=== PATIENT | female | born 1965 | race Caucasian/White ===

== ENCOUNTER 2016-04-07 17:56 | Emergency (ER) | payer BC ==
[2016-04-07] MEDS ORDERED: NS 0.9% 1000 ML* 2,000 ML IV ONE (18:04)
[2016-04-07 18:22] LABS: Hematocrit 35 % (35-47); Hemoglobin 11.6 g/dl (12.0-16.0); Mean Corpuscular HGB Conc 33 g/dl (31-36); Mean Corpuscular Hemoglobin 29 pg (27-31); Mean Corpuscular Volume 87 fL (80-97); Mean Platelet Volume 10 um3 (7.4-10.4); Red Blood Count 4.06 10^6/ul (4.0-5.4); Red Cell Distribution Width 13 % (10.5-15)
[2016-04-07 18:24] LABS: Add Diff/Slide Review? Slide Review Added; Comments Flag Yes
[2016-04-07 18:38] LABS: Albumin 3.2 g/dL (3.2-5.2); BUN/Creatinine Ratio 14.5 (8-20); Calcium 8.4 mg/dL (8.6-10.3); EGFR African American 104.5 (>60); EGFR Non-African American 81.2 (>60); Globulin 2.1 g/dL (2-4); Magnesium 1.5 mg/dL (1.9-2.7); Potassium 3.3 mmol/L (3.5-5.0); Total Bilirubin 0.6 mg/dL (0.2-1.0); Total Protein 5.3 g/dL (6.4-8.9)
[2016-04-07 19:11] LABS: TSH (Thyroid Stimulating Horm) 1.02 mcIU/mL (0.34-5.60)
--- NOTE | 2016-04-07 19:33 | ED ---
Kirit Romero Adam, scribed for Woo Rodriguez MD on 04/07/16 at 1849 . ED Suture/Wound Check - HPI Summary HPI Summary: A 50 y/o female presents to the ED s/p bilateral breast reduction surgery this morning at [facility] in [place], [place] by Dr. Lindsey. She is c/o excess bleeding from the left breast. Bilateral drains present. Patient also had a syncopal episode when she arrived to [facility] ED that was witnessed with no LOC or significant head trauma.PMHx includes Oziel's Disease and depression. FHx is positive for HTN. Denies alcohol, tobacco, or substances. - History Of Current Complaint Chief Complaint: EDGeneral Stated Complaint: POST OP BLEEDING Time Seen by Provider: 04/07/16 18:03 Hx Obtained From: Patient Onset/Duration: Gradual Onset, Lasting Hours, Still Present Severity: Moderate Pain Intensity: 0 Pain Scale Used: 0-10 Numeric Procedure Type: Bilateral breast reduction Surgery Date: 04/07/16 - Surgery done in AM - Allergies/Home Medications Allergies/Adverse Reactions: Allergies Allergy/AdvReac Type Severity Reaction Status Date / Time Brompheniramine Allergy FACIAL Verified 04/07/16 18:31 [From [employer]et[employer]] SWELLING Phenylpropanolamine Allergy FACIAL Verified 04/07/16 18:31 [From [employer]etapp] SWELLING PMH/Surg Hx/FS Hx/Imm Hx Endocrine/Hematology History: Reports: Other Endocrine/Hematological Disorders - Oziel's Disease Psychiatric History: Reports: Hx Depression Infectious Disease History: No Infectious Disease History: Denies: Traveled Outside the [place] in Last 30 Days - Family History Known Family History: Positive: Hypertension - Father - Social History Occupation: Employed Full-time Lives: With Family Alcohol Use: None Substance Use Type: Reports: None Smoking Status (MU): Never Smoked Tobacco Review of Systems Constitutional: Negative Eyes: Negative ENT: Negative Cardiovascular: Negative Respiratory: Negative Gastrointestinal: Negative Genitourinary: Negative Musculoskeletal: Negative Positive: Bruising - Bilateral breasts, Other - Bleeding from breast reduction surgical wounds Positive: Syncope - At [facility] [place] [facility] ED bilingual medical receptionist desk Psychological: Normal All Other Systems Reviewed And Are Negative: Yes Physical Exam - Summary Physical Exam Summary: The patient is well-nourished in no acute distress and in no acute pain. The skin is warm and mildly diaphoretic and skin color reflects adequate perfusion. Cap refil 2 seconds. Right breast has dried blood and is draining well. Left breast more edematous and ecchymotic. Both drains intact. HEENT: The head is normocephalic and atraumatic. The pupils are equal and reactive. The conjunctivae are clear and without drainage. Nares are patent and without drainage. Mouth reveals dry mucous membranes and the throat is without erythema and exudate. The external ears are intact. The ear canals are patent and without drainage. The tympanic membranes are intact. Neck is supple with full range of motion and non-tender. There are no carotid bruits. There is no neck vein distension. Respiratory: Chest is non-tender. Lungs are clear to auscultation and breath sounds are symmetrical and equal. Cardiovascular: Heart is regular rate and rhythm. There is no murmur or rub auscultated. There is no peripheral edema and pulses are symmetrical and equal. Abdomen: The abdomen is soft and non-tender. There are normal bowel sounds heard in all four quadrants and there is no organomegaly palpated. Musculoskeletal: There is no back pain noted. Extremities are non-tender with full range of motion. Capillary refill is 2 seconds. There is no peripheral edema or calf tenderness elicited. Neurological: Patient is alert and oriented to person, place and time. The patient has symmetrical motor strength in all four extremities. Cranial nerves are grossly intact. Deep tendon reflexes are symmetrical and equal in all four extremities. Psychiatric: The patient has an appropriate affect and does not exhibit any anxiety or depression. Vital Signs On Initial Exam: Initial Vitals Temp Pulse Resp BP Pulse Ox 97.2 F 69 16 98/56 99 04/07/16 18:06 04/07/16 18:06 04/07/16 18:06 04/07/16 18:06 04/07/16 18:06 - [place] Coma Scale Coma Scale Total: 15 Diagnostics - Vital Signs Vital Signs Temp Pulse Resp BP Pulse Ox 04/07/16 18:06 97.2 F 69 16 98/56 99 - Laboratory Lab Results: Lab Results 04/07/16 04/07/16 04/07/16 Range/Units 18:10 18:10 18:10 WBC 22.0 H (3.5-10.8) 10^3/ul RBC 4.06 (4.0-5.4) 10^6/ul Hgb 11.6 L (12.0-16.0) g/dl Hct 35 (35-47) % MCV 87 (80-97) fL MCH 29 (27-31) pg MCHC 33 (31-36) g/dl RDW 13 (10.5-15) % Plt Count 325 (150-450) 10^3/ul MPV 10 (7.4-10.4) um3 Neut % (Auto) 88.2 H (38-83) % Lymph % (Auto) 4.1 L (25-47) % Quay % (Auto) 7.5 (1-9) % Eos % (Auto) 0 (0-6) % Baso % (Auto) 0.2 (0-2) % Absolute Neuts (auto) 19.4 H (1.5-7.7) 10^3/ul Absolute Lymphs (auto) 0.9 L (1.0-4.8) 10^3/ul Absolute Monos (auto) 1.7 H (0-0.8) 10^3/ul Absolute Eos (auto) 0 (0-0.6) 10^3/ul Absolute Basos (auto) 0 (0-0.2) 10^3/ul Absolute Nucleated RBC 0 10^3/ul Nucleated RBC % 0 INR (Anticoag Therapy) (0.89-1.11) APTT (26.0-36.3) seconds Sodium 134 (133-145) mmol/L Potassium 3.3 L (3.5-5.0) mmol/L Chloride 105 (101-111) mmol/L Carbon Dioxide 26 (22-32) mmol/L Anion Gap 3 (2-11) mmol/L BUN 11 (6-24) mg/dL Creatinine 0.76 (0.51-0.95) mg/dL Est GFR ( Amer) 104.5 (>60) Est GFR (Non-Af Amer) 81.2 (>60) BUN/Creatinine Ratio 14.5 (8-20) Glucose 193 H (70-100) mg/dL Lactic Acid 3.9 H* (0.5-2.0) mmol/L Calcium 8.4 L (8.6-10.3) mg/dL Magnesium 1.5 L (1.9-2.7) mg/dL Total Bilirubin 0.60 (0.2-1.0) mg/dL AST 14 (13-39) U/L ALT 13 (7-52) U/L Alkaline Phosphatase 48 (34-104) U/L Troponin I 0.00 (<0.04) ng/mL Total Protein 5.3 L (6.4-8.9) g/dL Albumin 3.2 (3.2-5.2) g/dL Globulin 2.1 (2-4) g/dL Albumin/Globulin Ratio 1.5 (1-3) TSH Pending 04/07/16 Range/Units 18:10 WBC (3.5-10.8) 10^3/ul RBC (4.0-5.4) 10^6/ul Hgb (12.0-16.0) g/dl Hct (35-47) % MCV (80-97) fL MCH (27-31) pg MCHC (31-36) g/dl RDW (10.5-15) % Plt Count (150-450) 10^3/ul MPV (7.4-10.4) um3 Neut % (Auto) (38-83) % Lymph % (Auto) (25-47) % Quay % (Auto) (1-9) % Eos % (Auto) (0-6) % Baso % (Auto) (0-2) % Absolute Neuts (auto) (1.5-7.7) 10^3/ul Absolute Lymphs (auto) (1.0-4.8) 10^3/ul Absolute Monos (auto) (0-0.8) 10^3/ul Absolute Eos (auto) (0-0.6) 10^3/ul Absolute Basos (auto) (0-0.2) 10^3/ul Absolute Nucleated RBC 10^3/ul Nucleated RBC % INR (Anticoag Therapy) 1.00 (0.89-1.11) APTT 23.2 L (26.0-36.3) seconds Sodium (133-145) mmol/L Potassium (3.5-5.0) mmol/L Chloride (101-111) mmol/L Carbon Dioxide (22-32) mmol/L Anion Gap (2-11) mmol/L BUN (6-24) mg/dL Creatinine (0.51-0.95) mg/dL Est GFR ( Amer) (>60) Est GFR (Non-Af Amer) (>60) BUN/Creatinine Ratio (8-20) Glucose (70-100) mg/dL Lactic Acid (0.5-2.0) mmol/L Calcium (8.6-10.3) mg/dL Magnesium (1.9-2.7) mg/dL Total Bilirubin (0.2-1.0) mg/dL AST (13-39) U/L ALT (7-52) U/L Alkaline Phosphatase (34-104) U/L Troponin I (<0.04) ng/mL Total Protein (6.4-8.9) g/dL Albumin (3.2-5.2) g/dL Globulin (2-4) g/dL Albumin/Globulin Ratio (1-3) TSH Result Diagrams: 04/07/16 18:10 04/07/16 18:10 Lab Statement: Any lab studies that have been ordered have been reviewed, and results considered in the medical decision making process. Course/Dx - Differential Diagnoses Differential Diagnoses: Dehiscence, Hematoma, Other - syncope, - Clinical Impression Provider Diagnoses: Syncope, Left breast hematoma, Status post bilateral breast reduction - Physician Notifications Discussed Care Of Patient With: Dr. Thomas (housecalls nurse physician for [employer] , 18:35) - States there could be hematoma present that may require draining. Suggests transfer. Dr. Flores ([facility], 19:15) - Accepts patient for transfer. Discharge - Discharge Plan Condition: Stable Disposition: TRANS HIGHER LVL OF CARE FAC Discharge Disposition Comment: Patient's surgery was performed in [place] The documentation as recorded by the Kirit hernandez Adam accurately reflects the service I personally performed and the decisions made by , Woo Rodriguez MD.
--- NOTE | 2016-04-07 20:11 | ED ---
Kirit Romero Adam, scribed for Woo Rodriguez MD on 04/07/16 at 1959 . Progress - EKG/XRAY/CT EKG: NSR - 18:02 Rate: 74, no ST T wave changes Comments: Normal axis Course/Dx - Diagnoses Provider Diagnoses: Syncope The documentation as recorded by the scribeKirit Adam accurately reflects the service I personally performed and the decisions made by me, Woo Rodriguez MD.
[2016-04-07 20:27] VITALS: BP 145/62
== END 2016-04-07 20:27 | disposition short-term general hospital (02) ==
LOC: ED 17:56
DX: R55 Syncope and collapse (principal); S20.02XA Contusion of left breast, initial encounter; Z98.890 Other specified postprocedural states; X58.XXXA Exposure to other specified factors, initial encounter; Y93.9 Activity, unspecified; Y92.9 Unspecified place or not applicable; Y99.9 Unspecified external cause status
CPT/HCPCS: 36415; 80053; 83605; 83735; 84443; 84484; 85025; 85610; 85730; 86850; 86900; 86901; 93005; 96360; 99283

== ENCOUNTER → 2019-06-12 07:01 | Day surgery (SDC) | payer BC ==
[~2019-06-12 07:01] MED LIST: Buffered Lidocaine 1% SYRIN* 1 ML/SYRINGE INTRADERM ONE; Bupivacaine 0.25% SDV* 30 ML ONE; Dexamethasone IV* 4 MG/ML 1 ML (4 MG) ONE; Glycopyrrolate IV* 0.2 MG/ML 1 ML VIAL ONE; HYDROmorphone INJ1* 1 MG/ML SYRINGE IV PRN; HYDROmorphone INJ1* 1 MG/ML SYRINGE ONE; Ketorolac INJ* 30 MG/ML 1 ML VIAL ONE; Lactated Ringers 1000 ML Bag* 1,000 ML IV SCH; Lidocaine 1% INJ* 10 MG/ML 30 ML SDV ONE; Midazolam* 1 MG/ML 2 ML VIAL (2 MG) ONE; Naloxone* 0.4 MG/ML 1 ML VIAL IV PRN; Ondansetron INJ* 2 MG/ML VIAL ONE; Propofol* 10 MG/ML 20 ML BTL ONE; Rocuronium* 10 MG/ML VIAL ONE; fentaNYL* 50 MCG/ML 2 ML VIAL (100 MCG VIAL) IV PRN; fentaNYL* 50 MCG/ML 2 ML VIAL (100 MCG VIAL) ONE; oxyCODONE/Acetamin 5/325 MG* TAB PO PRN
[2019-06-12 16:31] VITALS: BP 134/83
--- NOTE | 2019-06-12 21:07 | OP ---
CC: Dr. Jordan Villasenor * DATE OF OPERATION: 06/12/19 - SDS DATE OF : 69 SERVICE: General Surgery. SURGEON: Kalina Fuller MD. [employer]OR ATTENDANT: Florencia Mcduffie NP. ANESTHESIOLOGIST: Dr. Lo. PRE-OP DIAGNOSIS: Primary hyperparathyroidism. POST-OP DIAGNOSIS: Primary hyperparathyroidism. OPERATIVE PROCEDURE: Parathyroidectomy, 4-gland exploration, and right upper parathyroidectomy. ESTIMATED BLOOD LOSS: Minimal, less than 10 cc. SPECIMENS: Right upper parathyroid gland, lymph node, left upper and right lower parathyroid biopsies. COMPLICATIONS: None. INDICATIONS FOR SURGERY: Ms. Servin is a very pleasant 53-year-old female who was found to have primary hyperparathyroidism. Given her very young age, she was determined to be an appropriate candidate for a parathyroidectomy. Preoperative imaging studies showed an enlarged right upper parathyroid gland on ultrasound; therefore, the patient gave informed consent for a parathyroidectomy. She understood that the risks include, but were not limited to, bleeding, infection, injury to nearby structures such as the recurrent laryngeal nerve and the possibility of persistent or recurrent hyperparathyroidism. She understood the alternatives and benefits as well and she wished to proceed. DESCRIPTION OF PROCEDURE: The patient was brought back to the operating room and placed on the operating table in the supine position. Sequential compression devices were placed in the bilateral lower extremities for DVT prophylaxis. No antibiotics were administered. General endotracheal anesthesia was induced. The electrodes for the nerve monitor were attached and then a time-out was performed prior to administering local anesthesia to the neck, which consisted of 0.25% Marcaine and 1% lidocaine mixed. After this, her neck was prepped and draped in normal sterile fashion and prior to beginning the actual surgery, a second time-out was performed, verifying the patient's name, date of , and the procedure to be performed. Next, an approximately 4 cm incision was made in the natural crease line 2 fingerbreadths above the sternal notch. The skin was divided down to the subcutaneous tissue. The platysma was divided and then inferior and superior subplatysmal flaps were developed. The median raphe between the strap muscles was identified and divided over the isthmus of the thyroid gland and then attention was turned towards the right thyroid lobe given that preoperative imaging studies had shown enlarged right upper parathyroid gland. The strap muscles were retracted laterally off of the thyroid gland, which was noted to be very vascular with many small veins coursing over it. Two peanuts were used to rotate the lobe medially and anteriorly out of the neck. The middle thyroid vein was divided in order to allow for more medial rotation. The right lower parathyroid gland was identified easily. It was located at the inferior pole of the thyroid gland and it was normal in appearance and somewhat adherent to the lobe itself. A small sample of the tissue was clipped and biopsied and confirmed to be parathyroid tissue. Next, attention was turned towards identifying the right upper parathyroid gland given that this was what appeared to be enlarged on imaging. The right upper lobe was rotated further medially and an enlarged adenomatous right upper parathyroid gland was also identified. It was dissected out with areolar tissue and its pedicle was then identified and divided. After this, it was opened at the back table and was confirmed to be parathyroid tissue. I decided to explore for the left parathyroid glands, given that on her office ultrasound she appeared to have either an enlarged thyroid tubercle or potential left upper adenoma on the left side. In a similar fashion, the left strap muscles were retracted off the thyroid lobe. The left thyroid lobe was retracted medially and anteriorly in the neck and the middle thyroid vein was identified and divided. The left upper parathyroid gland was easily identified and appeared to be normal. It was clipped and a small piece of tissue was sent for frozen specimen which confirmed that it was parathyroid tissue. The left lower gland was thought to be identified, but it appeared to be a somewhat rounded pale nodule. A piece of it was biopsied and it was excised; however, the frozen specimen confirmed that it was actually a lymph node. Therefore, after the procedure was completed already, the left lower parathyroid gland was noted to actually have been a lymph node. After excising the right upper parathyroid gland, her serial PTH levels had been obtained. A baseline was drawn in the preop holding area. T0 was drawn when the pedicle was taken of the parathyroid gland. T5 and T10 were then taken. The baseline returned as 156.3. T0 was 219, T5 was 81.7 and T10 was 46.7. Cowlitz criterion had clearly been met. Therefore, attention was turned towards closure. Hemostasis was obtained. Tisseel was placed in the neck. The strap muscles were reapproximated using interrupted 4-0 Vicryl sutures. The platysma was reapproximated using interrupted 4-0 Vicryl sutures. The skin was closed using a running 5-0 Prolene suture. Sterile dressing was then placed. The patient's anesthesia was reversed, and she was taken to the PACU in stable condition. At the end of the case, all counts were correct and I was present during the entirety of the case. [id number]/[facility] #: [id number] MTDD
== END | disposition home or self-care (01) ==
LOC: OR 07:01
PROVIDERS: ATTEND Surgery
DX: E21.0 Primary hyperparathyroidism (principal); E03.9 Hypothyroidism, unspecified; F41.8 Other specified anxiety disorders; Z85.828 Personal history of other malignant neoplasm of skin; Z88.8 Allergy status to other drugs, medicaments and biological substances
CPT/HCPCS: 36415; 83970; 88305; 88331; C1776; J1100; J1170; J1885; J2250; J2405; J2704; J3010; J3490

== ENCOUNTER 2022-03-29 14:21 | Inpatient (IN) ==
[2022-03-31] MEDS ORDERED: Dextrose 50% Syringe 50 ml 25 GM/50 ML SYRINGE IV PUSH PRN (14:03)
[2022-03-31] MEDS: D5NS 0.9% 1000 ml BAG 1,000 ML IV SCH (17:21)
[2022-03-31] MEDS: Enoxaparin 30 MG/0.3 ML SYR SUBCUT SCH (20:13)
[2022-04-01] MEDS: D5NS 0.9% 1000 ml BAG 1,000 ML IV SCH (06:09)
[2022-04-01 07:03] LABS: Albumin 3.2 g/dL (3.2-5.2); Albumin/Globulin Ratio 1.1 (1-3); Calcium 8.7 mg/dL (8.6-10.3); Potassium 4.6 mmol/L (3.5-5.0); Total Bilirubin 0.9 mg/dL (0.2-1.0); Total Protein 6.2 g/dL (6.4-8.9); eGFR CKD-EPI 109.8 (>60)
[2022-04-01] MEDS: Aspirin EC 81 mg TAB.EC (enteric coated) PO SCH (07:59)
[2022-04-01] MEDS: Enoxaparin 30 MG/0.3 ML SYR SUBCUT SCH ×2 (08:00→20:20)
[2022-04-01] MEDS: TPN 24 HR with Dextrose 50% Water 500 ML, Amino Acid Infusion 10% 1,000 ML, Lipid Emuls... CENT\\PICC SCH (17:11)
[2022-04-01 19:05] LABS: Magnesium 1.9 mg/dL (1.9-2.7); Phosphorus 4.5 mg/dL (2.5-5.0)
[2022-04-02] MEDS: Aspirin EC 81 mg TAB.EC (enteric coated) PO SCH (08:45)
[2022-04-02] MEDS: Enoxaparin 30 MG/0.3 ML SYR SUBCUT SCH ×2 (08:51→20:47)
[2022-04-02] MEDS: TPN 24 HR with Dextrose 50% Water 500 ML, Amino Acid Infusion 10% 1,000 ML, Lipid Emuls... CENT\\PICC SCH ×2 (18:52→18:54)
[2022-04-03] MEDS: Aspirin EC 81 mg TAB.EC (enteric coated) PO SCH (08:41)
[2022-04-03] MEDS: Enoxaparin 30 MG/0.3 ML SYR SUBCUT SCH ×2 (08:41→20:51)
[2022-04-03 09:10] LABS: ABS Basophils 0.1 10^3/ul (0-0.2); ABS Eosinophils 0.4 10^3/ul (0-0.6); ABS Lymphocytes 0.9 10^3/ul (1.0-4.8); ABS Monocytes 0.6 10^3/ul (0-0.8); ABS Neutrophils 4.2 10^3/ul (1.5-7.7); Eosinophil % 6.3 %; Hematocrit 33 % (35-47); Hemoglobin 10.4 g/dL (12.0-16.0); Lymphocyte % 15.2 %; Mean Corpuscular HGB Conc 32 g/dL (31-36); Mean Corpuscular Hemoglobin 29 pg (27-31); Mean Corpuscular Volume 94 fL (80-97); Nucleated Red Blood Cells % 0.1; Platelet Count 331 10^3/uL (150-450); Red Blood Count 3.53 10^6 /uL (3.70-4.87); Red Cell Distribution Width 17 % (10-15); White Blood Count 6.2 10^3/uL (3.5-10.8)
[2022-04-03 09:49] LABS: Albumin 3.3 g/dL (3.2-5.2); Albumin/Globulin Ratio 1.2 (1-3); Calcium 8.6 mg/dL (8.6-10.3); Globulin 2.8 g/dL (2-4); Potassium 4.5 mmol/L (3.5-5.0); Total Bilirubin 0.4 mg/dL (0.2-1.0); Total Protein 6.1 g/dL (6.4-8.9); eGFR CKD-EPI 112.5 (>60)
[2022-04-03] MEDS ORDERED: Lidocaine 1% MPF 5 ML VIAL INJ ONE (10:00)
[2022-04-03] MEDS ORDERED: Alteplase (CATHFLO) 2 MG VIAL IV ONE (10:30)
[2022-04-03] MEDS: TPN 24 HR with Dextrose 50% Water 500 ML, Amino Acid Infusion 10% 1,000 ML, Lipid Emuls... CENT\\PICC SCH (19:09)
[2022-04-04 06:41] LABS: ABS Basophils 0.1 10^3/ul (0-0.2); ABS Eosinophils 0.5 10^3/ul (0-0.6); ABS Lymphocytes 0.9 10^3/ul (1.0-4.8); ABS Monocytes 0.8 10^3/ul (0-0.8); ABS Neutrophils 3.3 10^3/ul (1.5-7.7); Eosinophil % 8.9 %; Hematocrit 33 % (35-47); Hemoglobin 10.4 g/dL (12.0-16.0); Lymphocyte % 16.9 %; Mean Corpuscular HGB Conc 32 g/dL (31-36); Mean Corpuscular Hemoglobin 30 pg (27-31); Mean Corpuscular Volume 94 fL (80-97); Mean Platelet Volume 10.1 fL (7.4-10.4); Platelet Count 331 10^3/uL (150-450); Red Blood Count 3.48 10^6 /uL (3.70-4.87); Red Cell Distribution Width 16 % (10-15); White Blood Count 5.5 10^3/uL (3.5-10.8)
[2022-04-04 07:02] LABS: Albumin 3.4 g/dL (3.2-5.2); Calcium 8.8 mg/dL (8.6-10.3); Magnesium 1.9 mg/dL (1.9-2.7); Potassium 4.3 mmol/L (3.5-5.0); Total Bilirubin 0.4 mg/dL (0.2-1.0)
[2022-04-04 07:08] LABS: Albumin/Globulin Ratio 1.2 (1-3); Globulin 2.9 g/dL (2-4); Total Protein 6.3 g/dL (6.4-8.9); eGFR CKD-EPI 113.1 (>60)
[2022-04-04] MEDS: Enoxaparin 30 MG/0.3 ML SYR SUBCUT SCH ×2 (09:26→20:10)
[2022-04-04] MEDS: Aspirin EC 81 mg TAB.EC (enteric coated) PO SCH (09:26)
[2022-04-04] MEDS: TPN 24 HR with Dextrose 50% Water 500 ML, Amino Acid Infusion 10% 1,000 ML, Lipid Emuls... CENT\\PICC SCH (17:21)
[2022-04-05] MEDS: Aspirin EC 81 mg TAB.EC (enteric coated) PO SCH (08:25)
[2022-04-05] MEDS: Enoxaparin 30 MG/0.3 ML SYR SUBCUT SCH ×2 (09:12→19:32)
[2022-04-05] MEDS: TPN 24 HR with Dextrose 50% Water 500 ML, Amino Acid Infusion 10% 1,000 ML, Lipid Emuls... CENT\\PICC SCH (17:39)
[2022-04-06] MEDS: Aspirin EC 81 mg TAB.EC (enteric coated) PO SCH (08:52)
[2022-04-06] MEDS: Enoxaparin 30 MG/0.3 ML SYR SUBCUT SCH ×2 (08:52→20:18)
[2022-04-06] MEDS: TPN 24 HR with Dextrose 50% Water 500 ML, Amino Acid Infusion 10% 1,000 ML, Lipid Emuls... CENT\\PICC SCH (17:44)
[2022-04-07 06:06] LABS: ABS Basophils 0.1 10^3/ul (0-0.2); ABS Eosinophils 0.4 10^3/ul (0-0.6); ABS Monocytes 0.8 10^3/ul (0-0.8); ABS Neutrophils 3.3 10^3/ul (1.5-7.7); Eosinophil % 6.9 %; Hematocrit 34 % (35-47); Hemoglobin 10.5 g/dL (12.0-16.0); Lymphocyte % 18.3 %; Mean Corpuscular HGB Conc 31 g/dL (31-36); Mean Corpuscular Hemoglobin 29 pg (27-31); Mean Corpuscular Volume 93 fL (80-97); Mean Platelet Volume 10.3 fL (7.4-10.4); Platelet Count 342 10^3/uL (150-450); Red Blood Count 3.62 10^6 /uL (3.70-4.87); Red Cell Distribution Width 15 % (10-15); White Blood Count 5.6 10^3/uL (3.5-10.8)
[2022-04-07 07:18] LABS: Albumin 3.4 g/dL (3.2-5.2); Albumin/Globulin Ratio 1.2 (1-3); Calcium 8.8 mg/dL (8.6-10.3); Globulin 2.9 g/dL (2-4); Magnesium 1.8 mg/dL (1.9-2.7); Phosphorus 4.2 mg/dL (2.5-5.0); Potassium 4.5 mmol/L (3.5-5.0); Total Bilirubin 0.4 mg/dL (0.2-1.0); Total Protein 6.3 g/dL (6.4-8.9); eGFR CKD-EPI 113.6 (>60)
[2022-04-07] MEDS: Aspirin EC 81 mg TAB.EC (enteric coated) PO SCH (09:12)
[2022-04-07] MEDS: Enoxaparin 30 MG/0.3 ML SYR SUBCUT SCH ×2 (09:12→20:15)
[2022-04-07] MEDS: TPN 24 HR with Dextrose 50% Water 500 ML, Amino Acid Infusion 10% 1,000 ML, Lipid Emuls... CENT\\PICC SCH (17:30)
[2022-04-08] MEDS: Aspirin EC 81 mg TAB.EC (enteric coated) PO SCH (09:31)
[2022-04-08] MEDS: Enoxaparin 30 MG/0.3 ML SYR SUBCUT SCH ×2 (09:32→19:59)
[2022-04-08] MEDS: TPN 24 HR with Dextrose 50% Water 500 ML, Amino Acid Infusion 10% 1,000 ML, Lipid Emuls... CENT\\PICC SCH (17:20)
[2022-04-09] MEDS: Aspirin EC 81 mg TAB.EC (enteric coated) PO SCH (09:31)
[2022-04-09] MEDS: Enoxaparin 30 MG/0.3 ML SYR SUBCUT SCH ×2 (09:32→21:46)
[2022-04-09] MEDS: TPN 24 HR with Dextrose 50% Water 500 ML, Amino Acid Infusion 10% 1,000 ML, Lipid Emuls... CENT\\PICC SCH (17:25)
[2022-04-09] MEDS ORDERED: Alteplase (CATHFLO) 2 MG VIAL IV ONE (19:00)
[2022-04-10] MEDS: Aspirin EC 81 mg TAB.EC (enteric coated) PO SCH (08:03)
[2022-04-10] MEDS: Enoxaparin 30 MG/0.3 ML SYR SUBCUT SCH ×2 (08:03→20:15)
[2022-04-10] MEDS: DEXTROSE IV SCH (17:03)
[2022-04-10] MEDS: TPN IV SCH (17:03)
[2022-04-10] MEDS: WATER IV SCH (17:03)
[2022-04-10] MEDS: [UNRECOGNIZED DRUG - OTHER] IV SCH (17:03)
[2022-04-10] MEDS: STERILE WATER FOR INJECTION IV SCH (17:03)
[2022-04-11 05:45] LABS: ABS Basophils 0.1 10^3/ul (0-0.2); ABS Eosinophils 0.4 10^3/ul (0-0.6); ABS Lymphocytes 1.1 10^3/ul (1.0-4.8); ABS Monocytes 0.9 10^3/ul (0-0.8); ABS Neutrophils 2.5 10^3/ul (1.5-7.7); Eosinophil % 7.2 %; Hematocrit 31 % (35-47); Hemoglobin 10.1 g/dL (12.0-16.0); Lymphocyte % 21.7 %; Mean Corpuscular HGB Conc 32 g/dL (31-36); Mean Corpuscular Hemoglobin 29 pg (27-31); Mean Corpuscular Volume 91 fL (80-97); Platelet Count 311 10^3/uL (150-450); Red Blood Count 3.43 10^6 /uL (3.70-4.87); Red Cell Distribution Width 15 % (10-15)
[2022-04-11 06:22] LABS: Albumin 3.2 g/dL (3.2-5.2); Albumin/Globulin Ratio 1.1 (1-3); Calcium 8.7 mg/dL (8.6-10.3); Globulin 2.8 g/dL (2-4); Magnesium 1.8 mg/dL (1.9-2.7); Phosphorus 4.3 mg/dL (2.5-5.0); Potassium 4.3 mmol/L (3.5-5.0); Total Bilirubin 0.4 mg/dL (0.2-1.0); eGFR CKD-EPI 114.3 (>60)
[2022-04-11] MEDS: Enoxaparin 30 MG/0.3 ML SYR SUBCUT SCH ×2 (10:22→20:02)
[2022-04-11] MEDS: Aspirin EC 81 mg TAB.EC (enteric coated) PO SCH (10:22)
[2022-04-11] MEDS: DEXTROSE IV SCH (17:42)
[2022-04-11] MEDS: TPN IV SCH (17:42)
[2022-04-11] MEDS: [UNRECOGNIZED DRUG - OTHER] IV SCH (17:42)
[2022-04-11] MEDS: WATER IV SCH (17:42)
[2022-04-11] MEDS: STERILE WATER FOR INJECTION IV SCH (17:42)
[2022-04-12] MEDS: Aspirin EC 81 mg TAB.EC (enteric coated) PO SCH (09:09)
[2022-04-12] MEDS: Enoxaparin 30 MG/0.3 ML SYR SUBCUT SCH ×2 (09:10→20:07)
[2022-04-12] MEDS: TPN IV SCH (17:27)
[2022-04-12] MEDS: WATER IV SCH (17:27)
[2022-04-12] MEDS: [UNRECOGNIZED DRUG - OTHER] IV SCH (17:27)
[2022-04-12] MEDS: STERILE WATER FOR INJECTION IV SCH (17:27)
[2022-04-12] MEDS: DEXTROSE IV SCH (17:27)
[2022-04-13] MEDS: Enoxaparin 30 MG/0.3 ML SYR SUBCUT SCH ×2 (10:59→20:26)
[2022-04-13] MEDS: Aspirin EC 81 mg TAB.EC (enteric coated) PO SCH (10:59)
[2022-04-13] MEDS: DEXTROSE IV SCH (17:58)
[2022-04-13] MEDS: [UNRECOGNIZED DRUG - OTHER] IV SCH (17:58)
[2022-04-13] MEDS: WATER IV SCH (17:58)
[2022-04-13] MEDS: STERILE WATER FOR INJECTION IV SCH (17:58)
[2022-04-13] MEDS: TPN IV SCH (17:58)
[2022-04-14 06:09] LABS: ABS Eosinophils 0.3 10^3/ul (0-0.6); ABS Monocytes 0.8 10^3/ul (0-0.8); ABS Neutrophils 2.5 10^3/ul (1.5-7.7); Eosinophil % 7.3 %; Hematocrit 31 % (35-47); Lymphocyte % 21.1 %; Mean Corpuscular HGB Conc 32 g/dL (31-36); Mean Corpuscular Hemoglobin 29 pg (27-31); Mean Corpuscular Volume 91 fL (80-97); Mean Platelet Volume 9.9 fL (7.4-10.4); Platelet Count 350 10^3/uL (150-450); Red Blood Count 3.39 10^6 /uL (3.70-4.87); Red Cell Distribution Width 15 % (10-15); White Blood Count 4.6 10^3/uL (3.5-10.8)
[2022-04-14 06:57] LABS: Albumin 3.3 g/dL (3.2-5.2); Albumin/Globulin Ratio 1.1 (1-3); Calcium 8.9 mg/dL (8.6-10.3); Globulin 2.9 g/dL (2-4); Magnesium 1.8 mg/dL (1.9-2.7); Phosphorus 4.1 mg/dL (2.5-5.0); Potassium 4.3 mmol/L (3.5-5.0); Total Bilirubin 0.3 mg/dL (0.2-1.0); Total Protein 6.2 g/dL (6.4-8.9); eGFR CKD-EPI 113.6 (>60)
[2022-04-14] MEDS: Aspirin EC 81 mg TAB.EC (enteric coated) PO SCH (09:28)
[2022-04-14] MEDS: Enoxaparin 30 MG/0.3 ML SYR SUBCUT SCH ×2 (09:29→21:13)
[2022-04-14] MEDS: STERILE WATER FOR INJECTION IV SCH (17:09)
[2022-04-14] MEDS: [UNRECOGNIZED DRUG - OTHER] IV SCH (17:09)
[2022-04-14] MEDS: TPN IV SCH (17:09)
[2022-04-14] MEDS: WATER IV SCH (17:09)
[2022-04-14] MEDS: DEXTROSE IV SCH (17:09)
[2022-04-14] MEDS: Alteplase (CATHFLO) 2 MG VIAL IV ONE ×2 (18:59→19:06)
[2022-04-15] MEDS: Enoxaparin 30 MG/0.3 ML SYR SUBCUT SCH ×2 (08:17→20:42)
[2022-04-15] MEDS: Aspirin EC 81 mg TAB.EC (enteric coated) PO SCH (08:17)
[2022-04-15] MEDS: [UNRECOGNIZED DRUG - OTHER] IV SCH (17:04)
[2022-04-15] MEDS: WATER IV SCH (17:04)
[2022-04-15] MEDS: TPN IV SCH (17:04)
[2022-04-15] MEDS: DEXTROSE IV SCH (17:04)
[2022-04-15] MEDS: STERILE WATER FOR INJECTION IV SCH (17:04)
[2022-04-16] MEDS ORDERED: Alteplase (CATHFLO) 2 MG VIAL IV ONE (08:39)
[2022-04-16] MEDS: Aspirin EC 81 mg TAB.EC (enteric coated) PO SCH (09:39)
[2022-04-16] MEDS: Enoxaparin 30 MG/0.3 ML SYR SUBCUT SCH ×2 (09:39→20:57)
[2022-04-16] MEDS: WATER IV SCH (17:07)
[2022-04-16] MEDS: [UNRECOGNIZED DRUG - OTHER] IV SCH (17:07)
[2022-04-16] MEDS: STERILE WATER FOR INJECTION IV SCH (17:07)
[2022-04-16] MEDS: DEXTROSE IV SCH (17:07)
[2022-04-16] MEDS: TPN IV SCH (17:07)
[2022-04-17] MEDS: Aspirin EC 81 mg TAB.EC (enteric coated) PO SCH (09:30)
[2022-04-17] MEDS: Enoxaparin 30 MG/0.3 ML SYR SUBCUT SCH ×2 (09:40→20:01)
[2022-04-17] MEDS: DEXTROSE IV SCH (17:13)
[2022-04-17] MEDS: WATER IV SCH (17:13)
[2022-04-17] MEDS: [UNRECOGNIZED DRUG - OTHER] IV SCH (17:13)
[2022-04-17] MEDS: TPN IV SCH (17:13)
[2022-04-17] MEDS: STERILE WATER FOR INJECTION IV SCH (17:13)
[2022-04-18 06:14] LABS: ABS Eosinophils 0.3 10^3/ul (0-0.6); ABS Monocytes 0.7 10^3/ul (0-0.8); ABS Neutrophils 3.4 10^3/ul (1.5-7.7); Eosinophil % 5.8 %; Hematocrit 32 % (35-47); Hemoglobin 10.4 g/dL (12.0-16.0); Lymphocyte % 18.5 %; Mean Corpuscular HGB Conc 33 g/dL (31-36); Mean Corpuscular Hemoglobin 29 pg (27-31); Mean Corpuscular Volume 89 fL (80-97); Mean Platelet Volume 9.5 fL (7.4-10.4); Nucleated Red Blood Cells % 0.1; Platelet Count 339 10^3/uL (150-450); Red Blood Count 3.54 10^6 /uL (3.70-4.87); Red Cell Distribution Width 15 % (10-15); White Blood Count 5.6 10^3/uL (3.5-10.8)
[2022-04-18 06:50] LABS: Albumin 3.3 g/dL (3.2-5.2); Albumin/Globulin Ratio 1.2 (1-3); Calcium 8.7 mg/dL (8.6-10.3); Globulin 2.8 g/dL (2-4); Magnesium 1.9 mg/dL (1.9-2.7); Phosphorus 3.4 mg/dL (2.5-5.0); Potassium 4.5 mmol/L (3.5-5.0); Total Bilirubin 0.3 mg/dL (0.2-1.0); Total Protein 6.1 g/dL (6.4-8.9); eGFR CKD-EPI 113.6 (>60)
[2022-04-18] MEDS: Aspirin EC 81 mg TAB.EC (enteric coated) PO SCH (08:17)
[2022-04-18] MEDS: Enoxaparin 30 MG/0.3 ML SYR SUBCUT SCH ×2 (08:17→20:04)
[2022-04-18] MEDS: TPN IV SCH (17:07)
[2022-04-18] MEDS: [UNRECOGNIZED DRUG - OTHER] IV SCH (17:07)
[2022-04-18] MEDS: WATER IV SCH (17:07)
[2022-04-18] MEDS: DEXTROSE IV SCH (17:07)
[2022-04-18] MEDS: STERILE WATER FOR INJECTION IV SCH (17:07)
[2022-04-19 05:46] VITALS: BP 123/81
[2022-04-19] MEDS: Aspirin EC 81 mg TAB.EC (enteric coated) PO SCH (08:59)
[2022-04-19] MEDS: Enoxaparin 30 MG/0.3 ML SYR SUBCUT SCH (09:46)
== END 2022-04-19 13:30 | disposition home health service (06) | DRG 860 ==
LOC: PMRU 03-31 12:35
PROVIDERS: ADMIT Physical Medicine & Rehabilitation; ATTEND Physical Medicine & Rehabilitation